=== PATIENT | female | born 1950 | race Asian ===

== ENCOUNTER 2020-01-10 05:59 | Day surgery (SDC) | payer OTHER ==
[2020-01-09 11:00] LABS: microscopic required? NO
[2020-01-09 11:15] LABS: CALCIUM 8.9 mg/dL (8.5-10.1); CARBON DIOXIDE 29.1 mmol/L (21-32); CHLORIDE SERUM 104 mmol/L (98-107); CREATININE SERUM 0.7 mg/dL (0.6-1.0); GFR1 > 60 mL/min; GLUCOSE SERUM 97 mg/dL (74-106); POTASSIUM SERUM 3.5 mmol/L (3.5-5.1); SODIUM SERUM 140 mmol/L (136-145)
[2020-01-09 11:29] LABS: urine erythrocyte NEGATIVE (NEGATIVE)
[2020-01-09 12:01] LABS: BASOPHIL % 0.5 % (0-2); PLATELET COUNT 259 x10^3mcL (130-400); RED CELL DISTRIBUTION WIDTH 13.2 % (11.5-14.5)
[~2020-01-10] VITALS: Ht 152.4 cm; Wt 71.2 kg
[2020-01-10 06:18] VITALS: BP 152/84
[2020-01-10 10:07] VITALS: BP 143/81
== END 2020-01-10 09:40 | disposition home or self-care (01) ==
LOC: DS 05:59 → OR 07:30 → DS 09:40
PROVIDERS: Ophthalmology
DX: H25.11 Age-related nuclear cataract, right eye (principal); I10 Essential (primary) hypertension; E07.89 Other specified disorders of thyroid; E78.5 Hyperlipidemia, unspecified; K21.9 Gastro-esophageal reflux disease without esophagitis; Z79.82 Long term (current) use of aspirin; Z79.899 Other long term (current) drug therapy; Z98.891 History of uterine scar from previous surgery; Z98.890 Other specified postprocedural states
CPT/HCPCS: C1780; J0171; J2001; J2250; J3010; J3490